=== PATIENT | male | born 1995 | race African-American/Black ===

== ENCOUNTER 2018-02-06 03:34 | Inpatient (IN) ==
[2018-02-06] MEDS ORDERED: Propofol 1000 mg/100 ml Inj 1,000 MG/100 ML BOTTLE ONE (03:41)
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
[2018-02-06 04:22] LABS: Hematocrit 42.9 % (39.0-51.0); Hemoglobin 13.1 gm/dL (13.0-17.0); Mean Corpuscular Hemoglobin 28.9 pg (27.0-34.0); Mean Corpuscular Volume 94.6 fL (80.0-100.0); Mean Platelet Volume 8.6 fL (7.0-11.0); Platelet Count 228 th/mm3 (150-450); Red Blood Count 4.53 mil/mm3 (4.50-5.90); White Blood Count 14.9 th/mm3 (4.0-11.0)
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
[2018-02-06 04:23] LABS: Activated Partial Thrombo Time 28.9 sec (24.3-30.1); INR 1.3 Ratio
[2018-02-06 04:24] LABS: Mean Corpuscular HGB Conc 30.5 % (32.0-36.0)
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
[2018-02-06 05:01] LABS: Metamyelocytes 2 % (0-1); Monocytes 4 % (0-8); Tallied Nucleated RBC 1 (0-0)
[2018-02-06 05:02] LABS: Lymphocytes 40 % (9-44)
[2018-02-06 05:03] LABS: Platelet Estimate Normal (Normal); Platelet Morphology Normal (Normal)
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
[2018-02-06] MEDS ORDERED: Post-op Orders (for Pharmacy) OTHER ONE (05:48)
[2018-02-06] MEDS ORDERED: Naloxone Inj 0.4 MG/ML Vial IV.PUSH PRN (05:48)
[2018-02-06] MEDS ORDERED: Bisacodyl 10 MG Supp RECTAL PRN (05:48)
[2018-02-06 06:12] LABS: ABG Base Excess -9.7 mmol/L (-2-2); ABG PCO2 40 mmHg (38-42); ABG PO2 423 mmHg (61-120)
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
[2018-02-06] MEDS ORDERED: Sod Chloride 0.9% Inj 2,000 ML IV.SIG ONE (06:24)
[2018-02-06] MEDS ORDERED: Potassium Phosphate 500 MG Soluble Tablet PO PRN ×2 (06:34)
[2018-02-06] MEDS ORDERED: Potassium Chloride 25 MEQ Effervescent Tablet PO PRN (06:34)
[2018-02-06] MEDS ORDERED: Potassium Phosphate Inj 30 MMOL in Sodium Chlor 0.9% Inj 250 ML IV.SIG PRN (06:34)
[2018-02-06] MEDS ORDERED: Potassium Chlor 40 mEq Premix 40 MEQ/100 ML PIGGYBACK IV.SIG PRN ×2 (06:34)
[2018-02-06] MEDS ORDERED: Magnesium Sulfate Inj 4 GM in Sodium Chlor 0.9% Inj 92 ML IV.SIG PRN (06:34)
[2018-02-06] MEDS ORDERED: Potassium Chlor 20 mEq Premix 20 MEQ/100 ML PIGGYBACK IV.SIG PRN ×2 (06:34)
[2018-02-06] MEDS ORDERED: Sodium Phosphate Inj 30 MMOL in Sodium Chlor 0.9% Inj 250 ML IV.SIG PRN (06:34)
[2018-02-06] MEDS ORDERED: Magnesium Oxide 400 MG Tablet PO PRN (06:34)
[2018-02-06] MEDS ORDERED: Magnesium Sulfate Inj 2 GM in Sodium Chlor 0.9% Inj 96 ML IV.SIG PRN (06:34)
[2018-02-06] MEDS ORDERED: Propofol 1000 mg/100 ml Inj 1,000 MG/100 ML BOTTLE IV.CONT PRN (06:40)
[2018-02-06] MEDS: Sod Chloride 0.9% Inj 1,000 ML IV.SIG SCH ×3 (07:00→22:04)
[2018-02-06 07:34] LABS: Mean Corpuscular HGB Conc 33.2 % (32.0-36.0); Mean Corpuscular Hemoglobin 29.1 pg (27.0-34.0); Mean Corpuscular Volume 87.7 fL (80.0-100.0); Mean Platelet Volume 8.1 fL (7.0-11.0); Platelet Count 130 th/mm3 (150-450); Red Blood Count 2.73 mil/mm3 (4.50-5.90); Red Cell Distribution Width 13.2 % (11.6-17.2); White Blood Count 21.1 th/mm3 (4.0-11.0)
[2018-02-06 07:40] LABS: Calcium 5.8 mg/dL (8.5-10.1); Carbon Dioxide 20.2 meq/L (21.0-32.0); Potassium 3.4 meq/L (3.5-5.1)
[2018-02-06 07:55] LABS: Total Protein 3.7 g/dL (6.4-8.2)
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
[2018-02-06] MEDS: fentaNYL 10 mcg/mL Premix Drip 2,500 MCG/250 ML BAG IV.SIG PRN (08:22)
[2018-02-06] MEDS: Sod Chloride 0.9% Inj 1,000 ML IV.CONT SCH ×2 (08:23→15:47)
[2018-02-06 08:26] LABS: Bilirubin,Urine Negative (Negative); Clarity,Urine Clear (Clear); Color,Urine Straw (Yellw/Straw); Glucose,Urine (UA) 150 mg/dL (Negative); Leukocyte Esterase,Urine Negative (Negative); Mucus,Urine Few /lpf (Occasional); Nitrite,Urine Negative (Negative); Specific Gravity,Urine 1.017 (1.002-1.035); Squamous Epithelial Cell,Urine 1 /hpf (0-5)
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
[2018-02-06 09:54] LABS: Hemoglobin 9.6 gm/dL (13.0-17.0)
[2018-02-06] MEDS: Senna/Docusate Sodium 8.6/50 MG Tablet PO SCH ×2 (10:07→21:28)
[2018-02-06] MEDS ORDERED: Sod Chloride 0.9% Inj 1,000 ML IV.SIG SCH (10:15)
--- NOTE | 2018-02-06 10:16 | MP ---
cc: Aime Escobedo MD DATE OF OPERATION: 02/06/2018 PREOPERATIVE DIAGNOSIS: Left hemopneumothorax. POSTOPERATIVE DIAGNOSIS: Left hemopneumothorax. PROCEDURE PERFORMED: Left chest tube placement. Left triple lumen subclavian placement. SURGEON: Aime Escobedo MD ANESTHESIA: Xylocaine 1% . ESTIMATED BLOOD LOSS: Minimal. DESCRIPTION OF PROCEDURE: The patient was prepped and draped in usual fashion. An incision was made in the fifth intercostal space, mid axillary line, deepened down with a hemostat. The chest entered and a 28-Prydeinig chest tube is placed, suture placed with 0 silk, connected to Pleur-Evac, which readily expands the lung. Needle inserted in the left subclavian vein, through the needle J-wire is passed over J-wire dilator and triple lumen placed. The triple lumen was sutured in place with 2-0 silk. Chest x-ray obtained. MD LEONORA Ag/last/pinky , 06:40 AM , 06:44 AM
--- NOTE | 2018-02-06 10:59 | ECHRPT ---
Indication: SOB CONCLUSIONS This a was very technically difficult study with very limited windows Normal left ventricular size. Wall thickness is normal. The left ventricular systolic function is low normal with an estimated ejection fraction in the rang e of 50- 55%. There was limited left ventricular wall motion assessment due to poor endocardial visualization. There is trace tricuspid valve regurgitation. There is a small pericardial effusion present. BP: / HR: Rhythm: MEASUREMENTS (Male / Female) Normal Values Technical Quality:Very technically difficult study 2D ECHO LV Diastolic Diameter PLAX 3.6 cm 4.2 - 5.9 / 3.9 - 5.3 cm LV Systolic Diameter PLAX 2.6 cm IVS Diastolic Thickness 0.7 cm 0.6 - 1.0 / 0.6 - 0.9 cm LVPW Diastolic Thickness 0.5 cm 0.6 - 1.0 / 0.6 - 0.9 cm LV Relative Wall Thickness 0.3 FINDINGS LEFT VENTRICLE Normal left ventricular size. Wall thickness is normal. The left ventricular systolic function is low normal with an estimated ejection fraction in the rang e of 50- 55%. There was limited left ventricular wall motion assessment due to poor endocardial visualization. TRICUSPID VALVE There is trace tricuspid valve regurgitation. PERICARDIUM There is a small pericardial effusion present. Matias Valero MD, FACC, [facility] [place] (Electronically Signed) Final Date:06 February 2018 10:58
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
[2018-02-06] MEDS: Oral Hygiene Kit OROPHARYNG SCH ×2 (11:33→17:11)
[2018-02-06] MEDS: Midazolam 50 MG/50 ML Inj 50 MG/50 ML BAG IV.CONT PRN ×2 (12:36→17:54)
[2018-02-06 14:28] LABS: Hematocrit 36.7 % (39.0-51.0); Hemoglobin 12.1 gm/dL (13.0-17.0); Mean Corpuscular Hemoglobin 28.1 pg (27.0-34.0); Mean Corpuscular Volume 84.9 fL (80.0-100.0); Mean Platelet Volume 7.9 fL (7.0-11.0); Platelet Count 83 th/mm3 (150-450); Red Blood Count 4.32 mil/mm3 (4.50-5.90); Red Cell Distribution Width 14.8 % (11.6-17.2); White Blood Count 24.4 th/mm3 (4.0-11.0)
[2018-02-06] MEDS ORDERED: Vasopressin Inj 40 UNIT in Dextrose 5% in Water Inj 98 ML IV.CONT PRN ×2 (15:48)
[2018-02-06] MEDS ORDERED: Sodium Chlor 0.9% Inj 250 ML IV.SIG SCH (16:00)
[2018-02-06] MEDS ORDERED: Sod Chloride 0.9% Inj 2,000 ML IV.SIG SCH (17:00)
[2018-02-06 18:12] LABS: Baso % (Auto) 0.2 % (0.0-2.0); Eos % (Auto) 0.1 % (0.0-4.0); Hemoglobin 9.6 gm/dL (13.0-17.0); Lymph % (Auto) 9.8 % (9.0-44.0); Mean Corpuscular HGB Conc 34.2 % (32.0-36.0); Mean Corpuscular Hemoglobin 28.6 pg (27.0-34.0); Mean Corpuscular Volume 83.7 fL (80.0-100.0); Mean Platelet Volume 7.7 fL (7.0-11.0); Mono # (Auto) 1.4 th/mm3 (0.0-0.9); Mono % (Auto) 6.5 % (0.0-8.0); Neut # (Auto) 17.4 th/mm3 (1.8-7.7); Neut % (Auto) 83.4 % (16.0-70.0); Platelet Count 138 th/mm3 (150-450); Red Blood Count 3.34 mil/mm3 (4.50-5.90); Red Cell Distribution Width 14.7 % (11.6-17.2); White Blood Count 20.9 th/mm3 (4.0-11.0)
[2018-02-06 18:15] LABS: Activated Partial Thrombo Time 34.7 sec (24.3-30.1); INR 1.8 Ratio
[2018-02-06 18:24] LABS: ABG Base Excess -10.1 mmol/L (-2-2); ABG PCO2 30 mmHg (38-42); ABG PO2 68 mmHg (61-120)
[2018-02-06 18:53] LABS: Calcium 5.6 mg/dL (8.5-10.1); Potassium 5.4 meq/L (3.5-5.1)
[2018-02-06 19:14] LABS: Total Protein 3.9 g/dL (6.4-8.2)
[2018-02-06 19:17] LABS: Lymphocytes 15 % (9-44); Metamyelocytes 3 % (0-1); Monocytes 2 % (0-8)
[2018-02-06 19:18] LABS: Burr Cells 1+; Platelet Estimate Normal (Normal); Platelet Morphology Normal (Normal)
[2018-02-06 19:19] LABS: Ovalocytes 1+
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
[2018-02-06] MEDS: Calcium Chloride Inj 1 GM in Sodium Chlor 0.9% Inj 100 ML IV.SIG SCH ×2 (20:17→21:19)
[2018-02-06] MEDS: Chlorhexidine 0.12% Oral Kit 15 ML UDC OROPHARYNG SCH (21:19)
[2018-02-06] MEDS: Famotidine 20 MG Tablet PO SCH (21:28)
[2018-02-06 23:40] LABS: Hematocrit 23.6 % (39.0-51.0)
[2018-02-07] MEDS: Oral Hygiene Kit OROPHARYNG SCH ×4 (00:34→16:29)
[2018-02-07] MEDS: Midazolam 50 MG/50 ML Inj 50 MG/50 ML BAG IV.CONT PRN ×3 (01:19→21:28)
[2018-02-07] MEDS: Sod Chloride 0.9% Inj 1,000 ML IV.CONT SCH ×2 (03:22→14:35)
[2018-02-07 03:37] LABS: Baso % (Auto) 0.2 % (0.0-2.0); Eos % (Auto) 0.1 % (0.0-4.0); Hematocrit 23.3 % (39.0-51.0); Hemoglobin 7.9 gm/dL (13.0-17.0); Lymph # (Auto) 1.8 th/mm3 (1.0-4.8); Lymph % (Auto) 12.9 % (9.0-44.0); Mean Corpuscular Hemoglobin 28.2 pg (27.0-34.0); Mean Corpuscular Volume 82.7 fL (80.0-100.0); Mono # (Auto) 0.5 th/mm3 (0.0-0.9); Mono % (Auto) 3.6 % (0.0-8.0); Neut # (Auto) 11.5 th/mm3 (1.8-7.7); Neut % (Auto) 83.2 % (16.0-70.0); Platelet Count 82 th/mm3 (150-450); Red Blood Count 2.81 mil/mm3 (4.50-5.90); Red Cell Distribution Width 14.4 % (11.6-17.2); White Blood Count 13.8 th/mm3 (4.0-11.0)
[2018-02-07 04:35] LABS: Lymphocytes 14 % (9-44); Metamyelocytes 2 % (0-1); Monocytes 1 % (0-8)
[2018-02-07 04:39] LABS: Acanthocytes Occ; Platelet Morphology Normal (Normal)
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
[2018-02-07 05:49] LABS: INR 1.4 Ratio; Prothrombin Time 13.7 sec (9.8-11.6)
[2018-02-07 05:53] LABS: Baso % (Auto) 0.1 % (0.0-2.0); Eos % (Auto) 0.1 % (0.0-4.0); Hematocrit 22.4 % (39.0-51.0); Hemoglobin 7.8 gm/dL (13.0-17.0); Lymph # (Auto) 1.6 th/mm3 (1.0-4.8); Lymph % (Auto) 14.9 % (9.0-44.0); Mean Corpuscular HGB Conc 34.7 % (32.0-36.0); Mean Corpuscular Hemoglobin 28.7 pg (27.0-34.0); Mean Corpuscular Volume 82.5 fL (80.0-100.0); Mean Platelet Volume 8.2 fL (7.0-11.0); Mono # (Auto) 0.4 th/mm3 (0.0-0.9); Mono % (Auto) 3.7 % (0.0-8.0); Neut # (Auto) 8.5 th/mm3 (1.8-7.7); Neut % (Auto) 81.2 % (16.0-70.0); Platelet Count 74 th/mm3 (150-450); Red Blood Count 2.72 mil/mm3 (4.50-5.90); Red Cell Distribution Width 14.5 % (11.6-17.2); White Blood Count 10.5 th/mm3 (4.0-11.0)
[2018-02-07 06:06] LABS: Alanine Aminotransferase 127 U/L (12-78); Albumin 2.6 g/dL (3.4-5.0); Alkaline Phosphatase 51 U/L (45-117); Anion Gap 8 meq/L (5-15); Aspartate Aminotransferase 225 U/L (15-37); Blood Urea Nitrogen 13 mg/dL (7-18); Calcium 7.3 mg/dL (8.5-10.1); Carbon Dioxide 21.7 meq/L (21.0-32.0); Chloride 113 meq/L (98-107); Glomerular Filtration Rate Greater Than 89 mL/min (>89); Glucose,Random 97 mg/dL (74-106); Potassium 4.9 meq/L (3.5-5.1); Sodium 143 meq/L (136-145); Total Protein 4.9 g/dL (6.4-8.2)
[2018-02-07 06:18] LABS: ABG Base Excess -4.7 mmol/L (-2-2); ABG PCO2 40 mmHg (38-42); ABG PO2 138 mmHg (61-120)
[2018-02-07 07:21] LABS: Lymphocytes 14 % (9-44)
[2018-02-07 07:22] LABS: Acanthocytes Occ; Platelet Morphology Normal (Normal)
[2018-02-07] MEDS: Sod Chloride 0.9% Inj 1,000 ML IV.SIG SCH ×2 (07:52→14:43)
[2018-02-07] MEDS: Chlorhexidine 0.12% Oral Kit 15 ML UDC OROPHARYNG SCH ×2 (08:38→21:30)
[2018-02-07] MEDS: Senna/Docusate Sodium 8.6/50 MG Tablet PO SCH ×2 (08:39→21:29)
[2018-02-07] MEDS: Famotidine 20 MG Tablet PO SCH ×2 (08:39→21:30)
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
[2018-02-07] MEDS ORDERED: ceFAZolin 2 GM Premix Inj 2 GM/50 ML PIGGYBACK IV.SIG ONE (10:47)
[2018-02-07] MEDS ORDERED: Bupivacaine/Epinephrine PF Inj 0.25% 10 ML Vial ONE (10:47)
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
[2018-02-07] MEDS ORDERED: Morphine Inj 4 MG/ML Vial ONE (13:19)
[2018-02-07 13:25] LABS: Hematocrit 29.3 % (39.0-51.0); Hemoglobin 10.3 gm/dL (13.0-17.0)
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
[2018-02-07] MEDS ORDERED: Morphine Inj 4 MG/ML Vial IV.PUSH ONE (14:15)
[2018-02-07] MEDS: fentaNYL 10 mcg/mL Premix Drip 2,500 MCG/250 ML BAG IV.SIG PRN (14:52)
[2018-02-07 17:42] LABS: ABG Base Excess -2.8 mmol/L (-2-2); ABG PCO2 46 mmHg (38-42); ABG PO2 210 mmHg (61-120)
[2018-02-07 18:52] LABS: Hematocrit 28.1 % (39.0-51.0)
[2018-02-07] MEDS: Norepinephrine Inj 4 MG in Sodium Chlor 0.9% Inj 246 ML IV.SIG PRN (22:00)
[2018-02-07] MEDS ORDERED: Albumin Human 5% Inj 500 ML IV.SIG ONE (22:00)
[2018-02-08 00:55] LABS: ABG PCO2 44 mmHg (38-42); ABG PO2 78 mmHg (61-120)
[2018-02-08] MEDS: Midazolam 50 MG/50 ML Inj 50 MG/50 ML BAG IV.CONT PRN ×2 (02:24→12:12)
[2018-02-08] MEDS: fentaNYL 10 mcg/mL Premix Drip 2,500 MCG/250 ML BAG IV.SIG PRN (03:30)
[2018-02-08 04:03] LABS: Alanine Aminotransferase 82 U/L (12-78); Albumin 2.6 g/dL (3.4-5.0); Alkaline Phosphatase 43 U/L (45-117); Anion Gap 9 meq/L (5-15); Aspartate Aminotransferase 132 U/L (15-37); Blood Urea Nitrogen 13 mg/dL (7-18); Chloride 116 meq/L (98-107); Glomerular Filtration Rate Greater Than 89 mL/min (>89); Glucose,Random 85 mg/dL (74-106); Potassium 4.1 meq/L (3.5-5.1); Sodium 148 meq/L (136-145); Total Protein 4.8 g/dL (6.4-8.2)
[2018-02-08 04:30] LABS: Hematocrit 23.7 % (39.0-51.0); Hemoglobin 8.1 gm/dL (13.0-17.0); Mean Corpuscular HGB Conc 34.2 % (32.0-36.0); Mean Corpuscular Hemoglobin 29.4 pg (27.0-34.0); Mean Corpuscular Volume 86.1 fL (80.0-100.0); Mean Platelet Volume 7.4 fL (7.0-11.0); Platelet Count 61 th/mm3 (150-450); Red Blood Count 2.76 mil/mm3 (4.50-5.90); Red Cell Distribution Width 15.2 % (11.6-17.2); White Blood Count 0.4 th/mm3 (4.0-11.0)
[2018-02-08] MEDS: Sod Chloride 0.9% Inj 1,000 ML IV.CONT SCH ×2 (05:24→14:00)
[2018-02-08] MEDS: Oral Hygiene Kit OROPHARYNG SCH ×4 (05:24→16:47)
--- NOTE | 2018-02-08 05:47 | XR ---
EXAM DATE: 02/08/2018 5:22 AM EDT AGE/SEX: 22 years / Male INDICATIONS: Shortness of breath. CLINICAL DATA: This is the patient's subsequent encounter. Patient reports that signs and symptoms h ave been present for 3 days and indicates a pain score of Nonresponsive. MEDICAL/SURGICAL HISTORY: Non-responsive. Non-responsive. COMPARISON: [facility] – [place], CHEST 1V SINGLE AP, 02/07/2018. . FINDINGS: Portable AP view of the chest demonstrates a normal-sized cardiac silhouette. ETT, nasogastric tube, and left subclavian central line remain present. Left chest tube is in place and no pneumothorax is v isualized. Left lung base airspace consolidation has mildly increased and there is new right basilar pleural-parenchymal opacity. Right scapular fracture remains visualized. CONCLUSION: 1. New right basilar pleural-parenchymal opacity likely representing pleural effusion with associate d volume loss and/or airspace consolidation. 2. Mildly increased left basilar consolidation. 3. Left chest tube remains present and no pneumothorax is visualized. Electronically signed by: Kenneth Hamilton MD 02/08/2018 5:46 AM EDT
[2018-02-08 06:02] LABS: ABG Base Excess -6.2 mmol/L (-2-2); ABG PCO2 43 mmHg (38-42); ABG PO2 109 mmHg (61-120)
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
[2018-02-08] MEDS ORDERED: Albumin Human 5% Inj 500 ML IV.SIG ONE (07:00)
[2018-02-08] MEDS: Albumin Human 5% Inj 250 ML IV.SIG ONE ×2 (07:19→07:32)
[2018-02-08] MEDS: Norepinephrine Inj 4 MG in Sodium Chlor 0.9% Inj 246 ML IV.SIG PRN ×4 (07:44→19:52)
[2018-02-08] MEDS ORDERED: Sod Chloride 0.9% Inj 1,000 ML IV.SIG ONE (09:00)
[2018-02-08 10:11] LABS: Lymphocytes 26 % (9-44); Metamyelocytes 11 % (0-1); Monocytes 8 % (0-8); Myelocytes 3 % (0-0)
[2018-02-08 10:15] LABS: Dohle Bodies Present; Platelet Morphology Normal (Normal); Toxic Granulation 1+; Toxic Vacuolation Present
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
[2018-02-08 11:48] LABS: ABG Base Excess -12.1 mmol/L (-2-2); ABG PCO2 59 mmHg (38-42); ABG PO2 68 mmHg (61-120)
[2018-02-08] MEDS: Senna/Docusate Sodium 8.6/50 MG Tablet PO SCH (12:10)
[2018-02-08] MEDS: Chlorhexidine 0.12% Oral Kit 15 ML UDC OROPHARYNG SCH (12:10)
[2018-02-08] MEDS: Famotidine 20 MG Tablet PO SCH (12:10)
[2018-02-08 12:19] LABS: Mean Corpuscular HGB Conc 33.3 % (32.0-36.0); Mean Corpuscular Hemoglobin 29.4 pg (27.0-34.0); Mean Corpuscular Volume 88.4 fL (80.0-100.0); Mean Platelet Volume 8.1 fL (7.0-11.0); Platelet Count 63 th/mm3 (150-450); Red Blood Count 2.19 mil/mm3 (4.50-5.90); Red Cell Distribution Width 15.5 % (11.6-17.2); White Blood Count 0.3 th/mm3 (4.0-11.0)
[2018-02-08 12:32] LABS: Hematocrit 19.4 % (39.0-51.0); Hemoglobin 6.4 gm/dL (13.0-17.0)
[2018-02-08 12:34] LABS: Calcium 5.9 mg/dL (8.5-10.1); Potassium 3.5 meq/L (3.5-5.1)
[2018-02-08] MEDS ORDERED: Sod Chloride 0.9% Inj 1,000 ML IV.CONT SCH (12:45)
[2018-02-08] MEDS ORDERED: Dextrose 50% in Water Syringe 50 ML ONE (12:53)
[2018-02-08 12:55] LABS: Total Protein 3.4 g/dL (6.4-8.2)
[2018-02-08 13:04] LABS: Hematocrit 24.3 % (39.0-51.0); Hemoglobin 8.1 gm/dL (13.0-17.0)
[2018-02-08] MEDS ORDERED: Sodium Bicarbonate 8.4% Inj 50 MEQ/50 ML Syringe ONE (13:10)
[2018-02-08 13:18] LABS: ABG Base Excess -13.7 mmol/L (-2-2); ABG PCO2 42 mmHg (38-42); ABG PO2 48 mmHg (61-120)
[2018-02-08] MEDS ORDERED: Sodium Bicarbonate 8.4% Inj 50 MEQ/50 ML Syringe IV.PUSH ONE (13:30)
[2018-02-08 13:31] LABS: Lymphocytes 100 % (9-44)
[2018-02-08 13:33] LABS: Platelet Morphology Normal (Normal)
--- NOTE | 2018-02-08 14:11 | P.PNNS ---
Subjective Interval history: 02/08: patient was seen and examined this morning during rounds, at that time patient was intubated, sedated, his ICPs controlled, pupils were 3-4 mm equal. Later in the morning patient became hypotensive and hypoxic with pupillary change to 6 mm, patient went into cardiac arrest and resuscitated. Follow up CT Brain has been ordered. Physical Exam Vital signs: Vital Signs 02/07/18 15:29 02/07/18 16:00 02/07/18 20:00 Temperature 99.3 F 99.9 F H Pulse Rate 122 H 132 H 133 H Respiratory Rate 14 16 16 Blood Pressure 109/61 105/56 L Pulse Oximetry 91 L 100 98 02/07/18 20:58 02/08/18 00:00 02/08/18 03:37 Temperature 99.0 F Pulse Rate 129 H 105 H 119 H Respiratory Rate 16 16 16 Blood Pressure 112/69 Pulse Oximetry 100 98 02/08/18 04:00 02/08/18 08:22 02/08/18 11:53 Temperature 98.6 F Pulse Rate 118 H Respiratory Rate 15 16 23 Blood Pressure 113/58 L Pulse Oximetry 100 93 L 02/08/18 12:05 02/08/18 12:18 02/08/18 13:21 Temperature 96.4 F L 96.1 F L Pulse Rate 123 H 119 H Respiratory Rate 24 21 11 L Blood Pressure 146/41 H 120/45 L Pulse Oximetry 87 L 02/08/18 13:28 02/08/18 13:41 02/08/18 13:48 Temperature 95.5 F L 95.4 F L 95.4 F L Pulse Rate 115 H 118 H 117 H Respiratory Rate 11 L 11 L 21 Blood Pressure 113/31 L 118/35 L 115/33 L Pulse Oximetry 75 L 02/08/18 13:54 Temperature 95.2 F L Pulse Rate 117 H Respiratory Rate 21 Blood Pressure 116/37 L Pulse Oximetry Intake & Output 02/07/18 02/08/18 02/08/18 18:59 06:59 18:59 Intake Total 1450 / 1450 1410 / 1410 1099 / 1099 Output Total 2300 / 2300 2300 / 2300 Balance -850 / -850 -890 / -890 1099 / 1099 Weight 70.1 kg Intake: IV 1390 / 1390 1350 / 1350 750 / 750 Versed Inj 50 mg In 50 ml @ 2 50 / 50 100 / 100 MG/HR 2 mls/hr IV.CONT TITRATE PRN Rx#:[id number] NS Inj 1,000 ML @ 80 mls/hr IV. 0 / 0 1000 / 1000 CONT .[id number] [facility] Rx#:[id number] Pitressin Inj 40 UNIT In D5W 90 / 90 Inj 98 ML @ 0.04 UNITS/MIN 6 mls/hr IV.CONT TITRATE PRN Rx#: [id number] Ofirmev Inj 1,000 mg In 100 ml 200 / 200 @ 400 mls/hr IV.SIG Q6H [facility] Rx# :[id number] Alburx 5% Inj 500 ML @ 250 mls/ 500 / 500 hr IV.SIG NOW ONE Rx#:[id number] Levophed Inj 4 MG In NS Inj 246 250 / 250 ML @ 2 MCG/MIN 7.5 mls/hr IV. SIG TITRATE PRN Rx#:[id number] NS Inj 1,000 ML @ 125 mls/hr IV 800 / 800 .SIG .Q8H [facility] Rx#:[id number] fentaNYL 10 mcg/mL Premix Drip 250 / 250 250 / 250 2,500 mcg In 250 ml @ 50 MCG/HR 5 mls/hr IV.SIG TITRATE PRN Rx #:[id number] Oral 0 / 0 Water Bolus Amount 60 / 60 60 / 60 Intake (Blood Product) Amt 0 / 0 349 / 349 Plasma Thawed 5 Day Cp2d Unit 0 / 0 [id number] Plasma Thawed 5 Day Cp2d Unit 349 / 349 [id number] Plt Pheresis B Leukoreduced 0 / 0 Unit [id number] Rbc As-3 Leukoreduced Unit 0 / 0 [id number] Rbc As-3 Leukoreduced Unit 0 / 0 [id number] Rbc As-3 Leukoreduced Unit 0 / 0 [id number] Rbc As-3 Leukoreduced Unit 0 / 0 [id number] Rbc As-3 Leukoreduced Unit 0 / 0 [id number] Rbc As-3 Leukoreduced Unit 0 / 0 [id number] Output: Urine Amount (Catheter) 1949 Indwelling Temp Sensing 1949 Catheter Gastric Drainage 0 / 0 0 / 0 Orogastric Tube 0 / 0 0 / 0 Chest Tube Drainage 350 / 350 350 / 350 #1 Left Mid-Axillary Chest 350 / 350 350 / 350 Other: # Voids 1 # Bowel Movements 0 0 Narrative: GENERAL: Young male. Intubated, sedated. SKIN: Warm and dry. HEAD: Right ICP monitor in place. EYES: No scleral icterus. No injection or drainage. NECK: immobilized by cervical collar. No JVD. CARDIOVASCULAR: Regular rate and rhythm RESPIRATORY: mechanically ventilated. GASTROINTESTINAL: Abdomen soft MUSCULOSKELETAL: No cyanosis, or edema. NEURO: Sedated, no spontaneous eye opening not following commands. pupils 3-4 mm bilaterally. - Urinary Catheter Management Indwelling Temp Sensing Catheter Cath placed during this visit: yes Reason for continuing: Hourly intake/output Insertion date: 02/06/18 Insertion time: 05:00 Assessment and Plan - Plan Impression: 22 y/o male with TBI, s/p placement of ICP monitor cervical transverse process fracture, nonoperative Head CT 02/07/18 07:42 CONCLUSION: 1. Small hemorrhage right parietal lobe measures 9 mm. No midline shift. 2. Posterior scalp contusion. Cervical Spine CT 02/06/18 03:47 CONCLUSION: 1. Minimally displaced right C7 transverse process fracture. The fracture does not appear to involve the foramen transversarium and the vertebral arteries typically do not enter the foramen until C6. 2. No other acute cervical spine abnormality is identified. Face CT 02/06/18 03:47 CONCLUSION: 1. No maxillofacial fracture is identified. 2. Possible foreign body within the left external auditory canal. There is a 4 mm density present. Lumbar Spine CT 02/06/18 03:47 CONCLUSION: No acute lumbar spine abnormality is identified. Thoracic Spine CT 02/06/18 03:47 CONCLUSION: No acute thoracic spine abnormality is identified. Plan: cont critical care per trauma team cont ICP monitoring, f/u CT Brain when stable to travel cont close neuro checks cont maintain cervical collar, when able obtain flexion extension xrays Protonix for stress ulcer prophylaxis Cali hoslen and SCD's for DVT prophylaxis Dr. Vivek mccloud [facility]
[2018-02-08 14:17] LABS: ABG Base Excess -12.4 mmol/L (-2-2); ABG PCO2 67 mmHg (38-42); ABG PO2 53 mmHg (61-120)
[2018-02-08] MEDS ORDERED: Norepinephrine Inj 8 MG in Sodium Chlor 0.9% Inj 242 ML IV.CONT PRN (14:23)
[2018-02-08] MEDS: Dextrose 50% in Water 50 ML Vial IV.PUSH PRN ×2 (14:51→16:42)
--- NOTE | 2018-02-08 14:52 | ECHRPT ---
Indication: SHORTNESS OF BREATH CONCLUSIONS The transthoracic study is normal by two-dimensional, color flow imaging and Doppler interrogation. The left ventricular systolic function is hyperdynamic with an estimated ejection fraction in the ra nge of 65- 70%. Normal left ventricular size. Wall thickness is normal. No regional wall motion abnormalities are present. technically limited study with views limited to the subcostal view BP: / HR: Rhythm: Sinus MEASUREMENTS (Male / Female) Normal Values Technical Quality:Poor 2D ECHO LV Diastolic Diameter PLAX 3.1 cm 4.2 - 5.9 / 3.9 - 5.3 cm LV Systolic Diameter PLAX 1.9 cm IVS Diastolic Thickness 0.9 cm 0.6 - 1.0 / 0.6 - 0.9 cm LVPW Diastolic Thickness 0.9 cm 0.6 - 1.0 / 0.6 - 0.9 cm LV Relative Wall Thickness 0.6 FINDINGS LEFT VENTRICLE The left ventricular systolic function is hyperdynamic with an estimated ejection fraction in the ra nge of 65- 70%. Normal left ventricular size. Wall thickness is normal. No regional wall motion abnormalities are present. Matias Valero MD, FACC, FSCAI (Electronically Signed) Final Date:08 February 2018 14:51
[2018-02-08] MEDS ORDERED: Sodium Bicarbonate 8.4% Inj 100 MEQ in Sod Chloride 0.9% Inj 900 ML IV.CONT SCH (15:00)
[2018-02-08] MEDS ORDERED: Insulin NovoLOG Aspart Correctional Sugar Inj SQ SCH (16:00)
[2018-02-08 16:23] VITALS: TEMP 94.5
--- NOTE | 2018-02-08 16:23 | XR ---
EXAM DATE: 02/08/2018 4:16 PM EDT AGE/SEX: 22 years / Male INDICATIONS: Respiratory distress. CLINICAL DATA: This is the patient's subsequent encounter. Patient reports that signs and symptoms h ave been present for 2 days and indicates a pain score of Nonresponsive. MEDICAL/SURGICAL HISTORY: Non-responsive. Non-responsive. COMPARISON: [facility] [place], CHEST 1V SINGLE AP, 02/08/2018. . FINDINGS: Single AP view of the thorax demonstrates stable appearance of a left-sided chest tube apically direc daniella. There is significant interval worsening of the lung exam with progressive airspace consolidation involving the bilateral lungs. These obscure the diaphragms and partially obscure the heart border. Endotracheal tube is visualized with the tip at the level of the clavicles, stable. CONCLUSION: Stable endotracheal tube and left-sided chest tube with overall significant worsening of the lung exa m consistent with ARDS. Electronically signed by: Kerry Howard MD 02/08/2018 4:22 PM EDT
[2018-02-08 16:27] VITALS: BP 103/35; RESP 18
[2018-02-08] MEDS ORDERED: Norepinephrine Inj 4 MG/4 ML Ampul ONE ×2 (18:43)
[2018-02-08] MEDS ORDERED: Phenylephrine Inj 80 MG in Dextrose 5% in Water Inj 492 ML IV.CONT PRN ×2 (19:35)
[2018-02-08 20:06] VITALS: PULSE 80
[2018-02-08 20:14] VITALS: O2SAT 83
--- NOTE | 2018-02-08 20:23 | P.PNCC ---
Critical Care Event Note Code activated: Yes Narrative: I have responded to CODE BLUE called shortly after 6 PM. On my arrival to [facility] bed 1310 the CPR was in progress. ACLS drugs administered. The patient already on infusions of sodium bicarbonate, 75 mcg of Levophed, 20 of epinephrine, 800 of Chip-Synephrine, and 0.04 of vasopressin per trauma team. Patient regained spontaneous circulation after 2 cycles of CPR for about 5 minutes, when he arrested again. Another cycle CPR initiated by nursing staff. Again after 2 cycles of CPR and pushes of epinephrine and sodium bicarbonate the patient regained spontaneous circulation for about 3 minutes and arrested again. Another CPR was initiated however without successful return of spontaneous circulation. The patient is in multiorgan failure with severe brain trauma, already maximized on medical therapy as mentioned above infusions of pressors and resuscitation. I believe that any further CPR or attempts of resuscitation would be futile and harmful to the patient's body. Patient was pronounced at 18:59 PM, February 08, 2018. Trauma attending and the family notified by RN. Critical care time: 30 - 74 mins
[2018-02-08] MEDS ORDERED: Sodium Bicarbonate 8.4% Inj 50 MEQ/50 ML Syringe IV.CONT ONE (22:09)
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
== END 2018-02-08 22:10 | disposition expired ==
LOC: NEPI 03:34 → NEDA 04:57 → EDBD 04:57 → N03 05:05
PROVIDERS: ADMIT Surgery; ATTEND Surgery